=== PATIENT | male | born 1980 | race Caucasian/White ===

== ENCOUNTER 2017-10-08 07:43 | Emergency (ER) | payer MEDICAID, SELFPAY ==
[2017-10-08 07:44] VITALS: BP 150/94; PULSE 58; RESP 16; TEMP 36.6; O2SAT 97; BMI 26.6
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
[2017-10-08] MEDS: DiphenhydrAMINE 50 MG/ML Syringe 25 MG IV (08:30)
[2017-10-08] MEDS: proCHLORPERazine 10 MG/2 ML Vial IV (08:31)
[2017-10-08] MEDS: 0.9% Normal Saline 1,000 ML 999 ML IV (08:31)
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
[2017-10-08 09:30] LABS: Absolute Lymphocyte Count 1.25 X10^3/ul (0.83-4.51); Absolute Neutrophil Count 10.4 X10^3/uL (2.0-7.7); Basophil# 0.02 X10^3/uL; Basophil% 0.2 % (0-1); Eosinophil# 0.03 X10^3/uL; Eosinophils% 0.2 % (0-5); Hematocrit 41.6 % (40-54); Hemoglobin 14.3 g/dl (13.0-16.5); Lymphocyte # 1.25 X10^3/ul (4.0); Lymphocyte % 9.8 % (19-41); Mean Corp Hgb Conc 34.4 g/gl (32-36); Mean Corpuscular Hgb 29.6 pg (27.0-32.0); Mean Corpuscular Volume 86.1 fL (80-94); Monocyte% 8.6 % (0-10); Neutrophil # 10.36 X10^3/uL (2.7-7.7); POSITIVE COUNT NO; POSITIVE DIFFERENTIAL NO; POSITIVE MORPHOLOGY NO; Platelet Count 203 K/mm3 (150-450); RBC Distribution Width CV 13.4 % (11.6-14.6); RBC Distribution Width SD 42.2 fl (35.1-43.9); Red Blood Count 4.83 M/mm3 (4.6-6.2); White Blood Count 12.8 K/mm3 (4.4-11.0)
[2017-10-08 09:36] LABS: International Normalized Ratio 1.2; Prothrombin Time (Protime)PT. 14.7 SECONDS (11.7-14.9)
[2017-10-08 09:37] LABS: Partial Thromboplast Time 37.2 Seconds (24.1-36.2)
[2017-10-08 09:41] LABS: Anion Gap 4 (5-15); BUN 11 mg/dL (7-18); BUN/Creat Ratio 12.2 RATIO (10-20); Calcium,Total 8.5 mg/dL (8.5-10.1); Chloride 105 mmol/L (98-107); EST Glomerular Filtration Rate 101 mL/min (>60); Est Glom Filt Rate - Afr Amer 123 mL/min (>60); Estimated Creatinine Clearance 113.47 ml/min; Glucose 133 mg/dL (74-106); Potassium 3.9 mmol/L (3.5-5.1); Sodium Level 138 mmol/L (136-145)
[2017-10-08 09:57] LABS: Alcohol, Blood (Medical)-Serum < 3.0 mg/dL
[2017-10-08 10:27] VITALS: BP 143/72; PULSE 99; RESP 16; O2SAT 93
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
--- NOTE | 2017-10-08 10:28 | ED.RN ---
PT BELONGINGS VERIFIED BY Rafael FUNES RN AND THIS NURSE. CELL PHONE, COAT-LEATHER, WALLET WITH 1 $50, 19-$20, 3-$10 AND 4-$5. A MAROON SHIRT, BLACK PANTS, UNDERWEAR, JORDANS, AND BLACK SOCKS
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
[2017-10-08 10:58] VITALS: BP 137/68; PULSE 92; RESP 16; O2SAT 98
[2017-10-08 11:12] VITALS: BP 137/68; PULSE 92; RESP 16; O2SAT 98
== END 2017-10-08 11:15 | disposition short-term general hospital (02) ==
PROVIDERS: Emergency Provider Emergency Medicine
DX: S06.319A Contusion and laceration of right cerebrum with loss of consciousness of unspecified duration, initial encounter (principal); V48.9XXA Unspecified car occupant injured in noncollision transport accident in traffic accident, initial encounter; Y93.89 Activity, other specified; Y92.9 Unspecified place or not applicable; R11.2 Nausea with vomiting, unspecified; T14.8XXA Other injury of unspecified body region, initial encounter; S01.01XA Laceration without foreign body of scalp, initial encounter
CPT/HCPCS: 70450; 80048; 80320; 85025; 85610; 85730; 96361; 96374; 96375; 99285; J7030; A4216; G0480